=== PATIENT | male | born 1945 | race Caucasian/White ===

== ENCOUNTER 2020-05-28 01:56 | Emergency (ER) | payer MEDICARE, BC ==
[2020-05-28] MEDS ORDERED: Sodium Chloride 0.9% 10 ML Syringe FLUSH PRN (02:19)
[2020-05-28] MEDS ORDERED: Sodium Chloride 0.9% 1,000 ML IV ONE (02:28)
[2020-05-28] MEDS ORDERED: Albuterol HFA 18 Gm Inhaler ONE (02:42)
[2020-05-28] MEDS ORDERED: methylPREDNISolone Sodium Succinate 125 MG/2 ML SDV IVPUSH ONE (02:58)
[2020-05-28] MEDS ORDERED: Enoxaparin 80 MG/0.8 ML Syringe SUBCUT ONE (03:05)
[2020-05-28 03:09] LABS: PCO2 ARTERIAL,POC 27 mmHg (35-48)
[2020-05-28 03:19] LABS: CHLORIDE,CL 94 mmol/L (98-107)
[2020-05-28 03:20] LABS: ANION GAP 17.3 mmol/L (10-20); SODIUM,NA 129 mmol/L (136-145)
[2020-05-28] MEDS ORDERED: cefTRIAXone 2 GM Vial IVPUSH ONE (03:22)
[2020-05-28 03:26] LABS: PTT,PARTIAL THROMBOPLSTIN TIME 34.4 SEC (25.6-32.8)
--- NOTE | 2020-05-28 03:52 | EDM.PDOC ---
ED HPI GENERAL MEDICAL PROBLEM - General Chief Complaint: General Stated Complaint: body aches, fever, cough Time Seen by Provider: 05/28/20 02:09 Source of Information: Reports: Patient, EMS - History of Present Illness INITIAL COMMENTS - FREE TEXT/NARRATIVE: Zackery is a 74 y/o male who is brought to the ER by [facility] after he got up to the bathroom and was very weak and became SOB. He denies any injury, but did fall to the floor due to the SOB. He as been at home for the last 7 days with fever, chills, and cough. On the ambulance ride to [place] his sat was in the mid 80s on 12.5 liters/NRB. He has not been tested for COVID, but states his is also ill but he is much sicker. - Related Data Allergies Allergy/AdvReac Type Severity Reaction Status Date / Time sun flower oil Allergy Seizure Uncoded 05/28/20 01:43 Home Meds: Home Meds Aspirin [Adult Low Dose Aspirin EC] 81 mg PO DAILY 10/12/19 [History] Cyanocobalamin (Vitamin B-12) [B-12] 1,000 mcg PO DAILY 10/12/19 [History] Ferrous Gluconate 324 mg PO Q48H 10/12/19 [History] Fish Oil/Weston-3 Fatty Acids [Fish Oil 1,000 MG] 1,000 mg PO DAILY 10/12/19 [History] Magnesium 200 mg PO BID 10/12/19 [History] Metoprolol Tartrate [Lopressor] 25 mg PO BID 10/12/19 [History] Omeprazole 20 mg PO Q48H 10/12/19 [History] Simvastatin 5 mg PO BEDTIME 10/12/19 [History] amLODIPine [Norvasc] 5 mg PO DAILY 10/12/19 [History] lisinopriL [Zestril] 5 mg PO DAILY 10/12/19 [History] metFORMIN HCl [Metformin HCl ER] 750 mg PO BID 10/12/19 [History] Past Medical History Cardiovascular History: Reports: High Cholesterol, Hypertension Neurological History: Reports: Seizure, TIA Endocrine/Metabolic History: Reports: Diabetes, Type II - Past Surgical History GI Surgical History: Reports: Appendectomy Neurological Surgical History: Reports: None Musculoskeletal Surgical History: Reports: Hip Replacement Social & Family History - Family History Family Medical History: Noncontributory - Tobacco Use Tobacco Use Status *Q: Unknown Ever Used Tobacco - Caffeine Use Caffeine Use: Reports: Coffee, Soda ED ROS GENERAL - Review of Systems Review Of Systems: See Below Constitutional: Reports: Fever, Chills, Malaise, Weakness, Decreased Appetite HEENT: Reports: No Symptoms Respiratory: Reports: Shortness of Breath, Cough Cardiovascular: Reports: No Symptoms Endocrine: Reports: No Symptoms GI/Abdominal: Reports: No Symptoms : Reports: No Symptoms Musculoskeletal: Reports: No Symptoms Skin: Reports: No Symptoms Neurological: Reports: No Symptoms Psychiatric: Reports: No Symptoms Hematologic/Lymphatic: Reports: No Symptoms Immunologic: Reports: No Symptoms ED EXAM, GENERAL - Physical Exam Exam: See Below General Appearance: Alert, WD/WN (Elderly male, appears ill but able to answer questions) Ears: Normal External Exam, Normal Canal, Hearing Grossly Normal Nose: Normal Inspection Throat/Mouth: Other (Lips and tongue dry) Respiratory/Chest: Respiratory Distress, Decreased Breath Sounds, Crackles (bilateral bases) Cardiovascular: Regular Rate, Rhythm GI/Abdominal: Normal Bowel Sounds (Male) Exam: Deferred Rectal (Males) Exam: Deferred Back Exam: Normal Inspection Extremities: Normal Inspection Neurological: Alert, Oriented, CN II-XII Intact, Normal Cognition Psychiatric: Normal Affect Skin Exam: Warm, Dry, Intact, Normal Color Lymphatic: No Adenopathy #1 Interpretation EKG Date: 05/28/20 Time: 03:20 Rhythm: NSR Rate (Beats/Min): 95 Jefferson: RAD-Right Jefferson Deviation P-Wave: Present QRS: Normal ST-T: Normal QT: Normal Comparison: NA - No Prior EKG EKG Interpretation Comments: NSR Course - Vital Signs Text/Narrative:: 0209 The patient was seen by the KENNEL HAND on arrival. His O2 sat was in the mid 70s range on 15 liters with a NRB and he was placed onto high flow oxygen tubing. Labs, EKG, and CXR ordered. He was given a liter of NS. 0225 COVID+ result from lab received. Some labs returning. Note widespread infiltrates bilaterally, right worse than left. Resp rate 28-30 and sats in tehe low 80s. 0240 [facility] contacted and case presented for transfer. Awaiting hospitalist for acceptance. SoluMedrol 125mg IVP and Lovenox 80mg SQ given. Ceftriaxone 2gm IVP given to cover for pneumonia. 0325 Still awaiting call from Hospitalist, Valeriano Donahue called with patient update. RR=30, Sats=85%. Case discussed with Dr Lopez in the ER. Patient accepted for transfer to the ER. 0340 CPAP started. Vitals improving, RR decreasing and O2sat improving. Patient reports improvement in breathing and falls asleep now. Patient remained in guarded condition and left with [facility]. Last Recorded V/S: Last Vital Signs Temp 38.1 C 05/28/20 03:02 Pulse 101 H 05/28/20 03:02 Resp 22 H 05/28/20 03:02 BP 158/85 H 05/28/20 03:02 Pulse Ox 88 L 05/28/20 03:02 - Orders/Labs/Meds Orders: Active Orders 24 hr Category Date Time Status EKG Documentation Completion [RC] STAT Care 05/28/20 02:19 Active Chest 1V Frontal [CR] Stat Exams 05/28/20 02:20 Taken BLOOD GAS ARTERIAL,POC [POC] Stat Lab 05/28/20 02:48 Received CBC WITH AUTO DIFF [HEME] Stat Lab 05/28/20 02:19 Ordered COMPREHENSIVE METABOLIC PN,CMP [CHEM] Stat Lab 05/28/20 02:19 Ordered CREATINE KINASE,CK [CHEM] Stat Lab 05/28/20 02:19 Ordered CULTURE BLOOD [BC] Stat Lab 05/28/20 02:21 Ordered CULTURE BLOOD [BC] Stat Lab 05/28/20 02:21 Ordered D-DIMER QUANTITATIVE [COAG] Stat Lab 05/28/20 02:20 Ordered INR,PT,PROTHROMBIN TIME [COAG] Stat Lab 05/28/20 02:19 Ordered LACTIC ACID [CHEM] Stat Lab 05/28/20 02:19 Ordered MAGNESIUM [CHEM] Stat Lab 05/28/20 02:19 Ordered PTT,PARTIAL THROMBOPLSTIN TIME [COAG] Stat Lab 05/28/20 02:19 Ordered TROPONIN I [CHEM] Stat Lab 05/28/20 02:19 Ordered Sodium Chloride 0.9% [Normal Saline] 1,000 ml Med 05/28/20 02:28 Active IV ONETIME Sodium Chloride 0.9% [Saline Flush] Med 05/28/20 02:19 Active 10 ml FLUSH ASDIRECTED PRN Blood Culture x2 Reflex Set [OM.PC] Stat Oth 05/28/20 02:19 Ordered Saline Lock Insert [OM.PC] Stat Oth 05/28/20 02:19 Ordered Medication Orders Sodium Chloride (Normal Saline) 1,000 mls @ 999 mls/hr IV ONETIME ONE Stop: 05/28/20 03:28 Last Admin: 05/28/20 02:35 Dose: 999 mls/hr Documented by: CABRERA Sodium Chloride (Saline Flush) 10 ml FLUSH ASDIRECTED PRN PRN Reason: Keep Vein Open Labs: Laboratory Tests 05/28/20 Range/Units 01:56 SARS CoV-2 RNA Rapid KYLER Positive H (NEGATIVE) Meds: Medications Generic Name Dose Route Start Last Admin Trade Name Freq PRN Reason Stop Dose Admin Sodium Chloride 1,000 mls @ 999 mls/hr 05/28/20 02:28 05/28/20 02:35 Normal Saline IV 05/28/20 03:28 999 mls/hr ONETIME ONE Administration Sodium Chloride 10 ml 05/28/20 02:19 Saline Flush FLUSH ASDIRECTED PRN Keep Vein Open Discontinued Medications Generic Name Dose Route Start Last Admin Trade Name Freq PRN Reason Stop Dose Admin Albuterol Confirm 05/28/20 02:42 05/28/20 02:37 Ventolin Hfa Administered 05/28/20 02:43 4 puff Dose Administration 18 gm .ROUTE .STK-MED ONE Enoxaparin Sodium 80 mg 05/28/20 03:05 Lovenox SUBCUT 05/28/20 03:06 ONETIME ONE Methylprednisolone Sodium Succinate 125 mg 05/28/20 02:58 Solu-Medrol IVPUSH 05/28/20 02:59 ONETIME ONE - Radiology Interpretation Free Text/Narrative:: XR Chest 1V=multifocal infiltrates, right > left (See final report) Departure - Departure Time of Disposition: 03:25 Disposition: Refer to Observation Condition: Critical Clinical Impression: COVID-19 virus infection, Respiratory distress, acute - Discharge Information Referrals: PCP,Unobtain [Primary Care Provider] - Forms: ED Department Discharge, Interfacility Transfer [facility] Sepsis Event Note (ED) - Evaluation Sepsis Screening Result: Possible Sepsis Risk - Focused Exam Vital Signs: Vital Signs Temp Pulse Resp BP Pulse Ox 05/28/20 03:02 38.1 C 101 H 22 H 158/85 H 88 L 05/28/20 01:57 38.4 C H 100 28 H 147/73 H 86 L - My Orders Last 24 Hours: My Active Orders 05/28/20 02:19 EKG Documentation Completion [RC] STAT CBC WITH AUTO DIFF [HEME] Stat COMPREHENSIVE METABOLIC PN,CMP [CHEM] Stat CREATINE KINASE,CK [CHEM] Stat INR,PT,PROTHROMBIN TIME [COAG] Stat LACTIC ACID [CHEM] Stat MAGNESIUM [CHEM] Stat PTT,PARTIAL THROMBOPLSTIN TIME [COAG] Stat TROPONIN I [CHEM] Stat Sodium Chloride 0.9% [Saline Flush] 10 ml FLUSH ASDIRECTED PRN Blood Culture x2 Reflex Set [OM.PC] Stat Saline Lock Insert [OM.PC] Stat 05/28/20 02:20 Chest 1V Frontal [CR] Stat D-DIMER QUANTITATIVE [COAG] Stat 05/28/20 02:21 CULTURE BLOOD [BC] Stat CULTURE BLOOD [BC] Stat 05/28/20 02:28 Sodium Chloride 0.9% [Normal Saline] 1,000 ml IV ONETIME 05/28/20 02:48 BLOOD GAS ARTERIAL,POC [POC] Stat - Assessment/Plan Last 24 Hours: My Active Orders 05/28/20 02:19 EKG Documentation Completion [RC] STAT CBC WITH AUTO DIFF [HEME] Stat COMPREHENSIVE METABOLIC PN,CMP [CHEM] Stat CREATINE KINASE,CK [CHEM] Stat INR,PT,PROTHROMBIN TIME [COAG] Stat LACTIC ACID [CHEM] Stat MAGNESIUM [CHEM] Stat PTT,PARTIAL THROMBOPLSTIN TIME [COAG] Stat TROPONIN I [CHEM] Stat Sodium Chloride 0.9% [Saline Flush] 10 ml FLUSH ASDIRECTED PRN Blood Culture x2 Reflex Set [OM.PC] Stat Saline Lock Insert [OM.PC] Stat 05/28/20 02:20 Chest 1V Frontal [CR] Stat D-DIMER QUANTITATIVE [COAG] Stat 05/28/20 02:21 CULTURE BLOOD [BC] Stat CULTURE BLOOD [BC] Stat 05/28/20 02:28 Sodium Chloride 0.9% [Normal Saline] 1,000 ml IV ONETIME 05/28/20 02:48 BLOOD GAS ARTERIAL,POC [POC] Stat Assessment:: 1)COVID+ 2)Respiratory Distress Plan: -Transfer to [facility] ER to Dr Lopez -CPAP on pt upon departure
--- NOTE | 2020-05-28 07:51 | CR ---
[id number] RAD/RAD Chest Portable EXAM: RAD Chest Portable INDICATION: SHORT OF BREATH, COVID +, HYPOXEMIA COMPARISON: None. DISCUSSION: Cardiomediastinal silhouette is normal in size and contour. Extensive predominantly peripherally based pulmonary infiltrates bilaterally, right greater than left. No pneumothorax or pleural effusion. IMPRESSION: Extensive bilateral pulmonary infiltrates, right greater than left. Findings are likely infectious/inflammatory in nature as can be seen with atypical/viral pneumonia. Rock Anderson DO 05/28/20 0750 Thank you for allowing us to participate in the care of your patient.
== END 2020-05-28 04:24 | disposition short-term general hospital (02) ==
LOC: VM.ED 01:56
DX: U07.1 COVID-19 (principal); E11.9 Type 2 diabetes mellitus without complications; E78.00 Pure hypercholesterolemia, unspecified; I10 Essential (primary) hypertension; Z86.73 Personal history of transient ischemic attack (TIA), and cerebral infarction without residual deficits; Z91.018 Allergy to other foods; Z79.82 Long term (current) use of aspirin; Z79.899 Other long term (current) drug therapy
CPT/HCPCS: 36415; 36600; 71045; 80053; 82550; 82803; 83605; 83735; 84484; 85025; 85379; 85610; 85730; 87040; 93005; 94660; 94760; 96372; 96374; 96375; 99285-25; A9270-GY; J0696; J1650; J2930; J7030; U0002